=== PATIENT | female | born 1940 | race Caucasian/White ===

== ENCOUNTER 2017-01-05 05:34 | Inpatient (IN) | payer MEDICARE, OTHER ==
--- NOTE | ~2017-01-05 | HP ---
Unit #: [id number] #: [id number] Patient: ETHAN GONSALEZ [id number] [place], [place] [address] [id number] I MR#: [id number] NAME: ETHAN GONSALEZ ROOM: 56208 Age: 76 Sex: F Admission Date: 01/05/2017 : 1940 Attending Physician: Roseline Tamayo M.D. Primary Care Physician: Mac Swan M.D. HISTORY AND PHYSICAL CHIEF COMPLAINT Abdominal pain. HISTORY OF PRESENT ILLNESS The patient is a 76-year-old female with a past medical history of hypertension, GERD, anemia, hypothyroidism, anxiety, depression who presented to the emergency department for evaluation of the above. The patient states that she was in her usual state of health until the evening prior to admission when she developed abdominal pain. This occurred around 10:00 p.m. The pain is in the upper abdomen and radiates to the chest and back. She describes it as "pain." It is exacerbated by eating. There are no alleviating factors. She denies any similar pain. She has had one bout of emesis in association with the pain. She has chronic loose stool She denies any fever. No cough or cold symptoms. In the emergency department CT of the abdomen and pelvis was done and showed findings concerning for pancreatitis, lipase is 7,127. She was given Zofran and Dilaudid in the emergency department, as well as Mylanta. She is being admitted to [facility] for evaluation and further treatment. PAST MEDICAL HISTORY 1. Admission to [facility] 07/05/2015 through 07/10/2015 for left ankle fracture. She underwent ORIF during that admission. 2. Hypertension. 3. GERD. 4. Hypothyroidism. 5. Anemia. 6. Anxiety and depression. 7. Chronic diarrhea followed by Dr. Rodriguez. 8. Skin cancer, status post excision. PAST SURGICAL HISTORY 1. EGD and colonoscopy. 2. Ankle surgery. 3. Knee surgery. 4. Hysterectomy. 5. Hemorrhoid surgery. SOCIAL HISTORY The patient lives with her . There is no tobacco use. She reports occasional alcohol use. Unit #: [id number] #: [id number] Patient: ETHAN GONSALEZ FAMILY HISTORY Notable for her sister having breast cancer. Her mother had colon cancer. Her dad had some type of malignancy. ALLERGIES Iodinated contrast material, influenza virus, opioids, morphine, codeine, hydrocodone, meperidine are all listed as allergies. HOME MEDICATIONS Pantoprazole 40 mg daily; amlodipine 2.5 mg daily; Lexapro 10 mg daily; Lotronex 0.5 mg daily; iron 325 mg daily; Synthroid 0.05 mg daily; all day energy 2.5 mg daily. REVIEW OF SYSTEMS A complete review of systems is negative except as indicated in the HPI. PHYSICAL EXAMINATION VITAL SIGNS: Temperature is 97.6, pulse 108, respirations 20, blood pressure 146/89, oxygen saturation 100% on room air. GENERAL: The patient is a female who is awake and alert in no acute distress. HEENT: The head is atraumatic. Mucous membranes are moist. NECK: Supple. Trachea is midline. CARDIOVASCULAR: Regular rate and rhythm. LUNGS: Clear to auscultation bilaterally with no increased work of breathing. ABDOMEN: Soft. She is tender to palpation in the epigastric area. Bowel sounds are present in all four quadrants. EXTREMITIES: Nontender with no pedal edema. NEUROLOGIC: The patient is awake and alert. She follow commands. PSYCH: Mood and affect are normal. Patient is cooperative. SKIN: Skin of examined areas is warm and dry. DIAGNOSTIC STUDIES IMAGING STUDIES: CT of the abdomen and pelvis shows findings concerning for pancreatitis. The gallbladder is also noted to be "hazy." Right upper quadrant ultrasound is pending at the time of this dictation. LABORATORY DATA: Complete blood count notable for a white blood cell count of 11.6. Urinalysis notable for 1+ protein, 100 glucose. Troponin is less than 0.05. Comprehensive metabolic panel notable for a glucose of 160, AST and ALT are 322 and 166 respectively. Alk phos is 132, total bilirubin is 1.5, lipase is 7,127. ASSESSMENT The patient is a 76-year-old female with: 1. Acute pancreatitis. The patient is on pantoprazole and Lexapro, which can really cause pancreatitis. Right upper quadrant ultrasound is pending. 2. Transaminitis. 3. Hypertension. 4. GERD. 5. Anemia. 6. Hypothyroidism. 7. Anxiety and depression. 8. Obesity with a BMI of 37. Unit #: [id number] #: [id number] Patient: ETHAN GONSALEZ PLAN 1. Admit to intermediate level. 2. NPO except medications. 3. Normal saline at 125 mL an hour. 4. P.r.n. Dilaudid. 5. P.r.n. Zofran. 6. Hepatitis panel. 7. Followup results of right upper quadrant ultrasound. 8. Hold pantoprazole and Lexapro pending Dr. Purcell's recommendations. 9. Consult Dr. Purcell regarding pancreatitis. 10. EKG if not done. 11. Serial cardiac enzymes. 12. Check TSH and triglycerides. 13. Repeat labs in the morning including amylase and lipase. 14. SCDs for DVT prophylaxis. 15. Additional workup and consultants based on above. Dictated by Marcia Monroe/daniel TD: 01/05/2017 13:37 JOB #: [id number] HISTORY AND PHYSICAL Page 1 of 1 X Roseline Tamayo MD X HISTORY AND PHYSICAL
--- NOTE | ~2017-01-05 | OR ---
Unit #: [id number] #: [id number] Patient: ETHAN GONSALEZ [id number] [address] [address] [id number] [place] MR#: [id number] NAME: ETHAN GONSALEZ ROOM: 319 Date of Procedure: 01/08/2017 Admission Date: 01/05/2017 Surgeon: Marcos Kaur M.D. : 1940 Attending Physician: Kel Donis M.D. Primary Care Physician: Corey Swan OPERATIVE REPORT PREOPERATIVE DIAGNOSIS Cholecystitis. POSTOPERATIVE DIAGNOSIS Cholecystitis. PROCEDURE PERFORMED Laparoscopic cholecystectomy. ASSISTANT Kenn Sierra M.D. ANESTHESIA General endotracheal anesthesia. ESTIMATED BLOOD LOSS 50 mL. IV FLUIDS 1 L crystalloid. COMPLICATIONS None. INDICATIONS FOR PROCEDURE The patient is a 76-year-old with cholecystitis. DESCRIPTION OF PROCEDURE The patient was taken to the operative theater and placed in supine position. General anesthesia was induced. Abdomen was prepped and draped. A 5-mm Optiview trocar was placed in the right upper quadrant without difficulty. The abdomen was insufflated to 15 mmHg with CO2. Under direct vision, I placed a subxiphoid 10 mm, right lateral 5 mm, umbilical 5 mm port. General inspection of the abdomen revealed acute cholecystitis with thickened gallbladder and multiple adhesions. The gallbladder retracted up over the liver. We dissected the neck of the gallbladder and identified the cystic duct. Its junction with the gallbladder was confirmed. This was doubly hemoclipped and divided. The cystic artery laid immediately posterior. This was skeletonized, doubly hemoclipped, and divided. The gallbladder was removed from gallbladder bed with Bovie electrocautery and placed into an Endobag and removed via the 10 mm port. Hemostasis was adequate. I irrigated thoroughly with Unit #: [id number] #: [id number] Patient: ETHAN GONSALEZ normal saline and aspirated all fluids, dry. The ports were removed without evidence of abdominal hemorrhage. The patient tolerated the procedure well and was sent to the recovery room in good condition. Wounds were closed with 4-0 Vicryl. Dictated by... Marcia ArrietaO/modl TD: 01/08/2017 10:17 JOB #: [id number] OPERATIVE REPORT Page 1 of 1 X Marcos Kaur MD PROCEDURE OPERATIVE NOTE
--- NOTE | ~2017-01-05 | US67 ---
[facility] A Service of [facility] & [facility] RADIOLOGY TEXT RESULTS PATIENT: ETHAN GONSALEZ LOCATION: A 319-01 : [birth year] UNIT #: [id number] AGE: [address]: Roseline Tamayo MD SEX: F ORDER DR: [id number] [facility] [address] [facility] [place], [place] [address] [id number] I MR#: [id number] Acc #: [id number] NAME: ETHAN GONSALEZ : 1940 SEX: F STUDY DATE/TIME: 01/05/2017 11:37 UNIT: CEDOF ROOM: 94604 STUDY DESCRIPTION: US Gallbladder Attending Physician: Roseline Tamayo M.D. Ordering Physician: Andres Lazo M.D. Primary Care Physician: Mac Swan M.D. MEDICAL IMAGING REPORT This report is preliminary unless electronic signature is present EXAM Ultrasound of the gallbladder INDICATION Abnormal CT scan performed January 05, 2017. TECHNIQUE Mckeon-scale and color Doppler sonographic images were obtained through the right upper quadrant. FINDINGS Pancreas could not be visualized due to overlying bowel gas. It was assessed on the earlier CT and patient was noted to have some peripancreatic stranding. Liver measures within normal size limits. Power Marketer questions some increased echogenicity of the liver, however this is not seen on the submitted images and I did not see any evidence of hepatic steatosis on the earlier CT. Main portal vein is patent with a hepatopetal flow. No focal hepatic lesions are seen. Right kidney is small measuring about 8.7 cm and there does appear to be some cortical thinning. This can be seen in the setting of chronic medical renal disease. Correlation with laboratory values is suggested. No hydronephrosis is identified. The patient does have some mild gallbladder wall edema and minimal gallbladder wall thickening measuring up to about 4.0 mm. Patient does have a gallstone within the gallbladder and there is a hyperechoic nonmobile structure also seen. This could reflect a polyp but one of the images does show some comet tail artifact and this may actually reflect some adenomyomatosis. IMPRESSION 1. The patient does have some mild gallbladder wall edema and minimal gallbladder wall thickening. Finding is nonspecific especially as the patient had inflammatory stranding also noted around the pancreas and this may reflect some secondary inflammation [facility] A Service of [facility] & [facility] RADIOLOGY TEXT RESULTS PATIENT: ETHAN GONSALEZ LOCATION: C3A 319-01 : 41 UNIT #: [id number] AGE: [address]: Roseline Tamayo MD SEX: F ORDER DR: from the pancreas. If concern for acute cholecystitis persists, further evaluation with HIDA scan is recommended. 2. This patient does have cholelithiasis. There is also a non-mobile hyperechoic structure which may reflect a polyp although on some of the images it appears to demonstrate comet-tail artifact. In fact this could reflect adenomyomatosis. 3. Pancreas cannot be seen due to overlying bowel gas but was assessed on the earlier CT. Again, patient was noted to have peripancreatic stranding which certainly could reflect acute pancreatitis. 4. Overall I think the right kidney appears mildly atrophic. Correlation with laboratory values is suggested. No hydronephrosis is seen. Dictated by... Lorelei Hooper M.D. THIS IS AN ELECTRONICALLY VERIFIED REPORT Lorelei Hooper M.D. at 01/05/2017 5:57 PM MONIQUE/malinda TD: 01/05/2017 15:10 JOB #: [id number] MEDICAL IMAGING REPORT Page 1 of 1 COPY
--- NOTE | ~2017-01-05 | DS ---
Unit #: [id number] #: [id number] Patient: ETHAN GONSALEZ [id number] [facility] [address] [facility] [place], [place] [address] [id number] I MR#: [id number] NAME: ETHAN GONSALEZ ROOM: 319 Age: 76 Sex: F Admission Date: 01/05/2017 : 1940 Discharge Date: 01/09/2017 Attending Physician: Kel Donis M.D. Primary Care Physician: Mac Swan M.D. DISCHARGE SUMMARY DIAGNOSIS ON ADMISSION Abdominal pain. DIAGNOSES ON DISCHARGE 1. Acute gallstone pancreatitis, resolved. 2. Status post laparoscopic cholecystectomy. 3. Hypertension. 4. Gastroesophageal reflux disease. 5. Anemia. 6. Hypothyroidism. 7. Depression. 8. Anxiety disorder. CONSULTATIONS Dr. Herring and group in surgical consultation. PROCEDURES DONE Patient had a laparoscopic cholecystectomy done. DIAGNOSTIC STUDIES LABS: The patient's creatinine is 0.8 today, sodium 138, potassium 4.1. AST is 36, and ALT is 95. LDL was 84. WBC is 14.5, hemoglobin is 12, platelet count is 291. Urinalysis did not reveal any white blood cells. IMAGING: Patient had an ERCP done, which did not have any evidence of dilatation. No clear filling defects were seen on imaging. HOSPITAL COURSE This 76-year-old patient was admitted to [facility] with abdominal pain. Details are as per admission H and P. The patient had a CT scan of the abdomen and pelvis done, which revealed large hiatal hernia, and it was suggestive of pancreatitis. Patient had some subtle haziness around the gallbladder, which can be seen in the setting of cholecystitis. Patient was seen by [facility] in consultation. Gallbladder ultrasound revealed cholelithiasis. Patient, therefore, underwent laparoscopic cholecystectomy once her pancreatitis had improved. She tolerated her surgery well yesterday and is eating. Today, she is comfortable and wants to go home. RECOMMENDATIONS ON DISCHARGE 1. Condition is stable. 2. Activities are as tolerated. 3. Patient is advised to follow up with primary care physician in one week and have a CBC and BMP done. Unit #: [id number] #: [id number] Patient: ETHAN GONSALEZ 4. Patient is advised to follow up with surgery and GI as recommended. 5. Patient is advised to call primary care physician or go to ER if her condition changes. 6. The plan was discussed in detail with the patient and , and they showed complete understanding. DISCHARGE MEDICATIONS 1. Lortab 7.5/325 mg 1 p.o. q.4 hours p.r.n. (#30; the prescription was written by Dr. Kelly). 2. Synthroid 0.05 mg p.o. daily. 3. Lexapro 10 mg p.o. daily. 4. Norvasc 2.5 mg p.o. daily. 5. Iron sulfate 325 mg p.o. daily. 6. Protonix 40 mg p.o. daily. Dictated by... Marcia Magaña/hector TD: 01/09/2017 13:45 JOB #: [id number] CC: Obed Purcell M.D. DISCHARGE SUMMARY Page 1 of 1 X Kel Donis MD X DISCHARGE SUMMARY
--- NOTE | ~2017-01-05 | CT4 ---
[facility] A Service of [facility] & [facility] RADIOLOGY TEXT RESULTS PATIENT: ETHAN GONSALEZ LOCATION: C3A 319-01 : 41 UNIT #: [id number] AGE: [address]: Richard Dill MD SEX: F ORDER DR: [id number] [facility] [address] [place], [place] [address] [id number] I MR#: [id number] Acc #: [id number] NAME: ETHAN GONSALEZ : 1940 SEX: F STUDY DATE/TIME: 01/05/2017 9:05 UNIT: C3A PCU ROOM: 319 STUDY DESCRIPTION: CT Abd and Pelv Wo Cont Attending Physician: Roseline Tamayo M.D. Ordering Physician: Andres Lazo M.D. Primary Care Physician: Corey Swan MEDICAL IMAGING REPORT This report is preliminary unless electronic signature is present EXAM CT abdomen and pelvis 01/05 INDICATIONS Abdominal pain with nausea and vomiting for 1 day. Pain is primarily upper quadrants. TECHNIQUE Axial images were obtained through the abdomen and pelvis without contrast. Multiplanar reformats were obtained. Comparison made with 07/07/2015. The CT exam was performed with one or more of the following radiation dose reduction techniques: automatic exposure control, adjustment of mA and/or kV according to patient size, and iterative reconstruction. FINDINGS Abdomen: Lung bases are clear except for atelectasis in the right lower lobe secondary to a large hiatal hernia. The hernia does not appear significantly changed. It contains the entire fundus of the stomach and a portion of the gastric body. There is some feculent material in nondistended otherwise normal-appearing small bowel loops which may indicate stasis. The GI tract otherwise is normal. There is subtle haziness around the gallbladder which could be seen in the setting of cholecystitis. Gallbladder ultrasound is recommended. Additionally, there is fat stranding adjacent to the anterior pancreatic head and proximal pancreatic body which may indicate acute pancreatitis. Correlate with laboratory data. No renal or ureteral stones are seen, and there is no hydronephrosis. There is a cyst in the lower pole left kidney which is not significantly changed. Unenhanced solid organs are otherwise normal. [facility] A Service of [facility] & [facility] RADIOLOGY TEXT RESULTS PATIENT: ETHAN GONSALEZ LOCATION: C3A 319-01 : [birth year] UNIT #: [id number] AGE: [address]: Richard Dill MD SEX: F ORDER DR: Pelvis: The appendix is normal. The lower colon is unremarkable. Distal small bowel does demonstrate a few feculent loops but otherwise normal. The urinary bladder is normal. No lower ureteral stones are seen. Uterus is surgically absent. There is no free fluid. There is diffuse degenerative disease in the spine. Bilateral L5 pars defects are seen with grade 1 to 2 spondylolisthesis at L5-S1. This is not significantly changed. IMPRESSION 1. Fat stranding adjacent to the anterior pancreatic head and proximal pancreatic body which could indicate acute pancreatitis. Correlate with laboratory data. 2. There is some subtle haziness around the gallbladder which can be seen in the setting of cholecystitis. Consider followup with gallbladder ultrasound. 3. No renal or ureteral stones. No hydronephrosis. 4. Large hiatal hernia, unchanged. 5. There is some feculent material within a few otherwise normal-appearing small bowel loops. This would suggest a component of stasis. No bowel obstruction is seen. The colon and appendix are normal. 6. Hysterectomy. Dictated by... Andres Kothari Jr., M.D. THIS IS AN ELECTRONICALLY VERIFIED REPORT Andres Kothari Jr., M.D. at 01/06/2017 10:17 AM ERNESTO/angela TD: 01/05/2017 10:48 JOB #: [id number] MEDICAL IMAGING REPORT Page 1 of 1 COPY
--- NOTE | ~2017-01-05 | EKG ---
PATIENT: ETHAN GONSALEZ UNIT #: [id number] Ventricular Rate: 75 BPM Atrial Rate: 75 BPM P-R Interval: 154 ms QRS Duration: 82 ms Q-T Interval: 408 ms QTC Calculation(Bezet): 455 ms P [place]: 60 degrees Calculated R [place]: 34 degrees Calculated T [place]: 5 degrees Diagnosis Line: Normal sinus rhythm Diagnosis Line: Normal ECG Diagnosis Line: When compared with ECG of 05-JAN-2017 14:21, Diagnosis Line: No significant change was found Diagnosis Line: Confirmed by CASSY HERNANDEZ MD ([id number]) on 01/07/2017 Diagnosis Line: 6:11:05 PM INTERPRETING MD: MARY FRENCH
--- NOTE | ~2017-01-05 | CO ---
Unit #: [id number] #: [id number] Patient: ETHAN GONSALEZ [id number] [address] [address] [id number] I MR#: [id number] NAME: ETHAN GONSALEZ ROOM: 319 Age: 76 Sex: F Admission Date: 01/05/2017 : 1940 Attending Physician: Kel Donis M.D. Primary Care Physician: Corey Swan Consultation Date: 01/07/2017 CONSULTATION REPORT HISTORY AND EXAM Ms. Baum presented with acute abdominal pain and on evaluation was found to have gallstone pancreatitis. Her laboratories are normalizing and she is now status post ERCP with clearance of the duct. We were asked to see the patient to discuss laparoscopic cholecystectomy. PAST MEDICAL HISTORY Hypertension, reflux, anemia, hypothyroidism, anxiety, depression, left ankle fracture, status post ORIF, chronic diarrhea, skin cancer, previous EGD, colonoscopy, knee surgery, hysterectomy, and hemorrhoid surgery. FAMILY HISTORY Breast cancer and colon cancer. SOCIAL HISTORY Lives with her . Denies use of tobacco. Social alcohol drinker. REVIEW OF SYSTEMS Otherwise unremarkable. PHYSICAL EXAMINATION GENERAL: She is awake, alert and oriented, pleasant demeanor. VITAL SIGNS: Temperature is 98.2, pulse 75, respirations 18, and blood pressure 138/73. HEENT: No scleral icterus. CARDIAC: Regular rate and rhythm. LUNGS: Clear. ABDOMEN: Soft. She has minimal guarding in the right upper quadrant. There is no mass or rebound. EXTREMITIES: No edema. NEUROLOGIC: Grossly intact. SKIN: No skin rashes or lesions. DIAGNOSTIC STUDIES LABORATORY RESULTS: Basic metabolic panel is unremarkable. Her serum CO2 is 19. Total bilirubin is 1.2. AST and ALT are down to 94 and 196, alkaline phosphatase 120, amylase is 137, lipase 78. Urinalysis is negative for infection. ASSESSMENT AND PLAN A 76-year-old female with gallstone pancreatitis, who has completed endoscopic retrograde cholangiopancreatography and clearance of the duct. We discussed laparoscopic cholecystectomy including risks, benefits, and complications, and the possibility of conversion to open procedure. She Unit #: [id number] #: [id number] Patient: ETHAN GONSALEZ understands and agrees to proceed. Dictated by... Marcia Hammonds/bertrand TD: 01/08/2017 02:34 JOB #: [id number] CONSULTATION REPORT Page 1 of 1 X Andres Herring MD CONSULTATION REPORT
--- NOTE | ~2017-01-05 | CR84 ---
[facility] A Service of [facility] & [facility] RADIOLOGY TEXT RESULTS PATIENT: ETHAN GONSALEZ LOCATION: [facility] 319- : 41 UNIT #: [id number] AGE: [address]: Kel Donis MD SEX: F ORDER DR: [id number] [facility] [address] [place], [place] [address] [id number] I MR#: [id number] #: [id number] NAME: ETHAN GONSALEZ : 1940 SEX: F STUDY DATE/TIME: 01/06/2017 11:58 UNIT: A U ROOM: [facility] STUDY DESCRIPTION: CR ERCP Biliary and Pancr SI Attending Physician: iRchard Dill M.D. Ordering Physician: Obed Purcell M.D. Primary Care Physician: Mac Swan M.D. MEDICAL IMAGING REPORT This report is preliminary unless electronic signature is present EXAM ERCP, 01/07/2017 HISTORY Gallbladder wall edema noted on gallbladder ultrasound 01/05/2017. Cholelithiasis. Abdomen pain, nausea and vomiting since 01/04/2017. Pancreatitis. FINDINGS ERCP was performed by Dr. Purcell. 4 spot film radiographs of the upper abdomen were obtained and 2 minutes, 5 seconds of fluoroscopy time was utilized. Contrast injection of the biliary tree showed no evidence of dilatation and no clear filling defects were identified. Injection of the pancreatic duct was normal. Dictated by... Kamari Kaplan M.D. THIS IS AN ELECTRONICALLY VERIFIED REPORT Kamari Kaplan M.D. at 01/08/2017 8:07 AM ISREAL/malinda TD: 01/07/2017 13:04 JOB #: [id number] MEDICAL IMAGING REPORT Page 1 of 1 COPY
--- NOTE | ~2017-01-05 | EKG ---
PATIENT: ETHAN GONSALEZ UNIT #: [id number] Ventricular Rate: 79 BPM Atrial Rate: 79 BPM P-R Interval: 168 ms QRS Duration: 86 ms Q-T Interval: 420 ms QTC Calculation(Bezet): 481 ms P [place]: 51 degrees Calculated R [place]: 36 degrees Calculated T [place]: 30 degrees Diagnosis Line: Normal sinus rhythm Diagnosis Line: Normal ECG Diagnosis Line: When compared with ECG of 05-JUL-2015 14:08, Diagnosis Line: No significant change was found Diagnosis Line: Confirmed by HOWARD CISNEROS MD ([id number]) on Diagnosis Line: 01/06/2017 8:48:24 AM INTERPRETING MD: BLAYNE FRENCH
[~2017-01-05 05:34] MED LIST: AMLODIPINE BES2.5 MG PO; LEVOXYL300 MCG PO; LEXAPRO PO; LOTRONEX1 MG PO; PANTOPRAZOLE SO40 MG PO
[2017-01-05] MEDS ORDERED: IRON325 MG PO (05:47)
[2017-01-05] MEDS ORDERED: LOTRONEX1 MG PO (05:47)
[2017-01-05] MEDS ORDERED: SYNTHROID0.05 MG PO (05:48)
[2017-01-05] MEDS ORDERED: ALL DAY ENERGY PO (05:48)
[2017-01-05 08:15] LABS: BASOPHIL% 0.2 % (0-2.5); DIFF IND NO; HEMATOCRIT 44.1 % (35.0-45.0); HEMOGLOBIN 14.3 gm/dL (12.0-16.0); LYMPHOCYTE# 0.9 X10e3 (1.0-3.5); LYMPHOCYTE% 8.1 % (17.0-45.0); MEAN CELL VOLUME 90.1 FL (83-96); MEAN CORPUSCULAR HEMOGLOBIN 29.2 PG (28-34); MEAN CORPUSCULAR HGB CONC 32.4 g/dL (30-36); MEAN PLATELET VOLUME 7.9 FL (6.5-11.5); MONOCYTE# 0.6 X10e3 (0-1.0); NEUTROPHIL% 86.7 % (40-75); PLATELET COUNT 358 X10e3 (140-420); RED BLOOD COUNT 4.89 X10e (3.90-5.30); RED CELL DISTRIBUTION WIDTH 14.6 % (11.0-15.5); WHITE BLOOD COUNT 11.6 X10e3 (4.0-10.5)
[2017-01-05 08:15] LABS: URINE SOURCE CLEAN CATCH
[2017-01-05 08:24] LABS: URINE APPEARANCE CLEAR; URINE BLOOD NEG (NEG); URINE COLOR DK YELLOW; URINE GLUCOSE 100 MG/DL (NEG); URINE KETONE TRACE (NEG); URINE LEUKOCYTE ESTERASE NEG (NEG); URINE NITRATE NEG (NEG); URINE PH 6.5 (5-8); URINE PROTEIN 1+ (NEG); URINE SPECIFIC GRAVITY 1.023 (1.003-1.035)
[2017-01-05 08:27] LABS: URBCS1 AUWI 0-2 /[HPF] (0-2); URINE BACTERIA AUWI NEG (NEGATIVE); URINE SQUAMOUS EPITHELIAL CELL NONE SEEN /[HPF]; UWBCS1 AUWI 0-2 (0-5)
[2017-01-05 08:32] LABS: CULTURE INDICATED? NO; URINE BILIRUBIN NEG (NEG)
[2017-01-05 08:58] LABS: POC - CKMB 2.6 ng/mL (0.0-7.9); POC - TROPONIN <0.05 ng/mL (<=0.05)
[2017-01-05 09:12] LABS: ALBUMIN SERUM 4.3 g/dL (3.5-5.0); BILIRUBIN, DIRECT 0.7 mg/dL (0.0-0.2); BILIRUBIN,INDIRECT 0.8 mg/dL (0.0-0.9); BILIRUBIN,TOTAL 1.5 mg/dL (0.2-2.0); CREATININE SERUM 0.9 mg/dL (0.6-1.4); GLOM FILT RATE Estimated 62.6 mL/min (>60); POTASSIUM 4.1 mmol/L (3.5-5.1); PROTEIN TOTAL SERUM 7.8 g/dL (6.0-8.3)
[2017-01-05 14:15] LABS: POC - CKMB 1.4 ng/mL (0.0-7.9); POC - TROPONIN <0.05 ng/mL (<=0.05)
[2017-01-05 16:37] LABS: CK TOTAL 55 IU/L (26-140)
[2017-01-05 23:23] LABS: %MB 3.4 % (0.0-4.0); MB 2.4 ng/ml
[2017-01-06 05:49] LABS: HEMATOCRIT 38.5 % (35.0-45.0); MEAN CORPUSCULAR HEMOGLOBIN 28.7 PG (28-34); MEAN CORPUSCULAR HGB CONC 31.6 g/dL (30-36); MEAN PLATELET VOLUME 7.9 FL (6.5-11.5); RED BLOOD COUNT 4.23 X10e (3.90-5.30); RED CELL DISTRIBUTION WIDTH 14.8 % (11.0-15.5); WHITE BLOOD COUNT 8.2 X10e3 (4.0-10.5)
[2017-01-06 05:59] LABS: HEMOGLOBIN 12.1 gm/dL (12.0-16.0)
[2017-01-06 06:31] LABS: ALBUMIN SERUM 3.2 g/dL (3.5-5.0); BILIRUBIN,TOTAL 3.2 mg/dL (0.2-2.0); CALCIUM SERUM 7.9 mg/dL (8.4-10.2); CREATININE SERUM 0.6 mg/dL (0.6-1.4); GLOM FILT RATE Estimated 89.2 mL/min (>60); POTASSIUM 3.8 mmol/L (3.5-5.1); PROTEIN TOTAL SERUM 5.9 g/dL (6.0-8.3)
[2017-01-06 13:10] LABS: CHOLESTEROL 162 mg/dL (0-200); HDL CHOLESTEROL 74 mg/dL (35-95); LDL CHOLESTEROL 84 mg/dL (-130); LDL/HDL RATIO 1 RATIO (0-4); TRIGLYCERIDES 22 mg/dL (10-160)
[2017-01-07 06:25] LABS: HEMATOCRIT 34.4 % (35.0-45.0); MEAN CELL VOLUME 91.5 FL (83-96); MEAN CORPUSCULAR HEMOGLOBIN 29.4 PG (28-34); MEAN CORPUSCULAR HGB CONC 32.1 g/dL (30-36); MEAN PLATELET VOLUME 8.4 FL (6.5-11.5); RED BLOOD COUNT 3.76 X10e (3.90-5.30); RED CELL DISTRIBUTION WIDTH 14.7 % (11.0-15.5)
[2017-01-07 06:47] LABS: AMYLASE 137 U/L (0-46); LIPASE 78 U/L (22-51)
[2017-01-07 07:34] LABS: BILIRUBIN,TOTAL 1.2 mg/dL (0.2-2.0); BUN/CREATININE RATIO 14.28; CREATININE SERUM 0.7 mg/dL (0.6-1.4); GLOM FILT RATE Estimated 84.8 mL/min (>60); POTASSIUM 3.6 mmol/L (3.5-5.1); PROTEIN TOTAL SERUM 5.6 g/dL (6.0-8.3)
[2017-01-08 01:38] LABS: HA AB IGM (HEPPAN) Nonreactive (()); HB CORE AB IGM (HEPPAN) Nonreactive (Nonreactive); HB S AG (HEPPAN) Nonreactive (Nonreactive); HEP C AB (HEPPAN) Nonreactive (Nonreactive); HEP C AB SIGNAL TO CUTOFF 0.02 ratio (<1.00)
[2017-01-08 06:44] LABS: ALBUMIN SERUM 2.9 g/dL (3.5-5.0); BUN/CREATININE RATIO 6.66; CALCIUM SERUM 7.9 mg/dL (8.4-10.2); CREATININE SERUM 0.9 mg/dL (0.6-1.4); GLOM FILT RATE Estimated 62.6 mL/min (>60); MAGNESIUM 1.6 mg/dL (1.6-3.0); PROTEIN TOTAL SERUM 5.7 g/dL (6.0-8.3)
[2017-01-08 13:01] LABS: HEMATOCRIT 38.9 % (35.0-45.0); HEMOGLOBIN 12.4 gm/dL (12.0-16.0); MEAN CELL VOLUME 91.4 FL (83-96); MEAN CORPUSCULAR HEMOGLOBIN 29.2 PG (28-34); RED BLOOD COUNT 4.26 X10e (3.90-5.30); RED CELL DISTRIBUTION WIDTH 14.6 % (11.0-15.5)
[2017-01-08 13:02] LABS: WHITE BLOOD COUNT 15.6 X10e3 (4.0-10.5)
[2017-01-09 05:17] LABS: HEMATOCRIT 37.8 % (35.0-45.0); MEAN CELL VOLUME 90.6 FL (83-96); MEAN CORPUSCULAR HEMOGLOBIN 28.9 PG (28-34); MEAN CORPUSCULAR HGB CONC 31.9 g/dL (30-36); MEAN PLATELET VOLUME 7.5 FL (6.5-11.5); RED BLOOD COUNT 4.17 X10e (3.90-5.30); RED CELL DISTRIBUTION WIDTH 14.4 % (11.0-15.5); WHITE BLOOD COUNT 14.5 X10e3 (4.0-10.5)
[2017-01-09 06:04] LABS: ALBUMIN SERUM 2.9 g/dL (3.5-5.0); BILIRUBIN,TOTAL 1.2 mg/dL (0.2-2.0); BUN/CREATININE RATIO 6.25; CALCIUM SERUM 8.3 mg/dL (8.4-10.2); CREATININE SERUM 0.8 mg/dL (0.6-1.4); GLOM FILT RATE Estimated 72.2 mL/min (>60); POTASSIUM 4.1 mmol/L (3.5-5.1); PROTEIN TOTAL SERUM 5.7 g/dL (6.0-8.3)
== END 2017-01-09 15:18 | disposition home or self-care (01) | DRG 418 ==
LOC: CED 05:34 → CEDOF 12:40 → C3A PCU 12:40 → CED 13:15 → CEDOF 13:15 → C3A PCU 13:15 → CEDOF 15:46 → C3A PCU 15:46 → CEDOF 01-06 14:47 → C3A PCU 01-06 14:50 → CEDOF 01-06 14:50 → C3A PCU 01-08 07:11
PROVIDERS: Emergency Medicine; Family Medicine; Internal Medicine; Surgery
PROC: 0FJD8ZZ Inspection of Pancreatic Duct, Via Natural or Artificial Opening Endoscopic (ICD-10-PCS; 2017-01-06)
PROC: 0DJ08ZZ Inspection of Upper Intestinal Tract, Via Natural or Artificial Opening Endoscopic (ICD-10-PCS; 2017-01-06 12:48)
PROC: 0FT44ZZ Resection of Gallbladder, Percutaneous Endoscopic Approach (ICD-10-PCS; principal; 2017-01-08 09:00)
DX: K85.10 Biliary acute pancreatitis without necrosis or infection (principal); K81.0 Acute cholecystitis; D64.9 Anemia, unspecified; R74.0 Nonspecific elevation of levels of transaminase and lactic acid dehydrogenase [LDH]; I10 Essential (primary) hypertension; K21.9 Gastro-esophageal reflux disease without esophagitis; E03.9 Hypothyroidism, unspecified; F41.9 Anxiety disorder, unspecified; F32.9 Major depressive disorder, single episode, unspecified; E66.9 Obesity, unspecified; Z68.37 Body mass index [BMI] 37.0-37.9, adult; K52.9 Noninfective gastroenteritis and colitis, unspecified; Z85.828 Personal history of other malignant neoplasm of skin; Z90.710 Acquired absence of both cervix and uterus; Z80.3 Family history of malignant neoplasm of breast; Z80.0 Family history of malignant neoplasm of digestive organs; K81.1 Chronic cholecystitis; K22.2 Esophageal obstruction; K44.9 Diaphragmatic hernia without obstruction or gangrene
CPT/HCPCS: 36415; 74176; 74330; 76705; 80048; 80053; 80061; 80074; 80076; 81003; 82150; 82550; 82553; 83690; 83735; 84443; 84478; 84484; 85025; 85027; 88304; 93005; 96374; 99285; J0330; J0690; J1170; J1610; J2250; J2270; J2405; J3010; J3475

== ENCOUNTER → 2017-05-04 | Outpatient (CLI) | payer MEDICARE, OTHER ==
[~2017-05-04] MED LIST changes: +ALL DAY ENERGY PO; +IRON325 MG PO; +SYNTHROID0.05 MG PO
--- NOTE | ~2017-05-04 | BD1 ---
[facility] A Service of [facility] & [facility] RADIOLOGY TEXT RESULTS PATIENT: ETHAN GONSALEZ LOCATION: [facility] : 42 UNIT #: [id number] AGE: [address]: Corey Swan MD SEX: F ORDER DR: [id number] [place], [place] [address] [id number] O MR#: [id number] Acc #: [id number] NAME: ETHAN GONSALEZ : 1940 SEX: F STUDY DATE/TIME: 05/04/2017 11:01 UNIT: [facility] ROOM: STUDY DESCRIPTION: BD Dexa Bone Dens 1+ Site Attending Physician: Corey Swan Referring Physician: Mac Swan M.D. Ordering Physician: Mac Swan M.D. Primary Care Physician: Mac Swan M.D. MEDICAL IMAGING REPORT This report is preliminary unless electronic signature is present EXAM DEXA scan. HISTORY Postmenopausal screening for osteoporosis. FINDINGS Bone density was assessed utilizing Hologic bone densitometer. Total bone density in the lumbar spine was calculated at 0.918 g/cm2 with a T-score of -1.2. I suspect this is falsely elevated due to degenerative sclerosis within the L1 and L2 vertebral bodies. In utilizing measurements from the L3 and L4 levels, the bone density is considerably lower and would range between 1.5 to 2.2 standard deviations below the mean. Total bone dense in the proximal left femur was calculated at 0.705 g/cm2 with a T-score of -1.9. IMPRESSION Total bone density within the lumbar spine and within the proximal left femur is between 1 to 2.5 standard deviations below the mean and is compatible World Health Organization criteria for osteopenia. Bone density within the lumbar spine may be falsely elevated due to degenerative sclerosis at L1 and L2. In utilizing the values at L3 and L4, the lumbar spine density is considerably lower, but still no more than 2.2 standard deviations below the mean and therefore the patient's classification does not change. Dictated by... Marli Alves M.D. THIS IS AN ELECTRONICALLY VERIFIED REPORT Marli Alves M.D. at 05/05/2017 4:46 PM LEONORA/laz [facility]. [facility] A Service of [facility] & [facility] / [facility] RADIOLOGY TEXT RESULTS PATIENT: ETHAN GONSALEZ LOCATION: [facility] : 42 UNIT #: [id number] AGE: [address]: Corey Swan MD SEX: F ORDER DR: TD: 05/04/2017 17:13 JOB #: [id number] MEDICAL IMAGING REPORT Page 1 of 1 COPY
--- NOTE | ~2017-05-04 | CT4 ---
[facility] A Service of [facility] RADIOLOGY TEXT RESULTS PATIENT: ETHAN GONSALEZ LOCATION: [facility] : 42 UNIT #: [id number] AGE: [address]: Corey Swan MD SEX: F ORDER DR: [id number] [place], [place] [address] [id number] O MR#: [id number] Acc #: [id number] NAME: ETHAN GONSALEZ : 1940 SEX: F STUDY DATE/TIME: 05/04/2017 10:12 UNIT: [facility] ROOM: STUDY DESCRIPTION: CT Abd and Pelv Wo Cont Ordering Physician: Mac Swan M.D. MEDICAL IMAGING REPORT This report is preliminary unless electronic signature is present EXAM CT abdomen and pelvis without contrast INDICATIONS Generalized abdominal pain since gallbladder surgery December 2016. Pancreatitis. TECHNIQUE Unenhanced CT of the abdomen and pelvis. This CT exam was performed with one or more of the following radiation dose reduction techniques: automatic exposure control, adjustment of mA and/or kV according to patient size, and iterative reconstruction. COMPARISON STUDIES 01/05/2017. FINDINGS ABDOMEN WITHOUT CONTRAST: Included lung bases clear. Large hiatal hernia. Interval cholecystectomy. No fluid in the gallbladder fossa. The liver, spleen, adrenal glands and pancreas have an unremarkable unenhanced appearance. 4.5 cm cyst exophytic lower pole left kidney. The bowel loops are non-dilated appendix is normal. PELVIS WITHOUT CONTRAST: Previous hysterectomy. No pelvic mass or fluid. No aggressive appearing bone lesion. Degenerative change lumbar spine. 1.4 cm anterolisthesis L5 on S1 with L5 pars defects is unchanged. [facility] A Service of [facility] & [facility] RADIOLOGY TEXT RESULTS PATIENT: ETHAN GONSALEZ LOCATION: [facility] : 42 UNIT #: [id number] AGE: [address]: Corey Swan MD SEX: F ORDER DR: 1. No acute findings in the abdomen or pelvis. 2. Incidental findings detailed above. 3. Large hiatal hernia. Dictated by... Alton Dow M.D. THIS IS AN ELECTRONICALLY VERIFIED REPORT Alton Dow M.D. at 05/05/2017 8:03 AM LINSEY/charito TD: 05/04/2017 15:37 JOB #: [id number] MEDICAL IMAGING REPORT Page 1 of 1 COPY
== END | disposition home or self-care (01) ==
LOC: CCAT 09:40
DX: M81.0 Age-related osteoporosis without current pathological fracture (principal); R10.9 Unspecified abdominal pain; K85.90 Acute pancreatitis without necrosis or infection, unspecified; Z98.890 Other specified postprocedural states
CPT/HCPCS: 74176; 77080